=== PATIENT | female | born 1995 ===

== ENCOUNTER 2017-06-21 20:40 | Inpatient (IN) | payer MEDICAID ==
[2017-06-21 22:54] VITALS: BMI 28.6
[2017-06-21] MEDS ORDERED: DiphenhydrAMINE 50 mg/ml Inj IM PRN (22:54)
[2017-06-21] MEDS ORDERED: Magnesium Hydroxide Susp 30 ml UD PO PRN (22:54)
[2017-06-21] MEDS ORDERED: Alum-Mag Hydrox-Simethicone Susp (30 mL) PO PRN (22:54)
--- NOTE | 2017-06-21 23:09 | PCM.BM ---
<JinnyPaul Patiño - Last Filed: 06/21/17 23:06> Treatment Plan Problems - Problems identified on initial assessmt hopelessness/helplessness Date Initiated: 06/21/17 Time Initiated: 23:06 Assessment reference: NA Status: Active Treatment assets and liabiliti Patient Assests: adapts well, cooperative, educated, motivated, physically healthy Patient Liabilities: financial problems, other (family conflict) - Milieu Protocol Maintain good personal hygiene: daily Remind patient to perform daily oral care , daily Assist patient to perform ADL's, every other day Encourage regular showers Maintain personal safety: every shift Educate patient to report safety concerns to staff, every shift Monitor environment for contraband/sharps Medication safety: Monitor for expected outcome, potential side effects: every shift, Assess barriers to learning: every shift, Assess readiness for medication education: every shift Family Contact Family contact: Patient agrees to contact, Other (contact gf: rajni verma: [phone]) Discharge/Continuing Care - Education Needs Education Needs: Family Medication, Family Diagnosis/Disease Process, Family Coping Skills, Family Community resources, Family Aftercare Safety Plan, Patient Medication, Patient Diagnosis/Disease Process, Patient Coping Skills, Patient Community resources, Patient Aftercare Safety Plan - Discharge Discharge Criteria: Tolerates medication w/o severe side effects, Free of Suicidal thoughts, Normal sleep pattern <Rupal Carbajal - Last Filed: 06/23/17 16:06> Treatment assets and liabiliti Patient Assests: adapts well, cooperative, educated, insightful, motivated, self -reliant, ADL independent, physically healthy, good support system, negotiates basic needs Patient Liabilities: financial problems, poor support system (social supports are limited to fiance), other Family Contact Family involvement: Family/SO is involved Family contact: Patient agrees to contact Family contact name: Rajnidomenic woods) ([phone]) Family contacted how many times per week?: 1 Family contact comment: Patients renea has been contacted and provided with education regarding nature of tx provided on 3NP and benefits of compliance with aftercare. Patients renea expressed understanding and denied having concerns regarding patients anticipated discharge/return home. - Outside Agency Agency 1 Care involvment: Other Agency contact name: [facility] Agency contact number: [phone] - Goals for Treatment Patient goals for treatment: Patient to be encouraged to attend groups to identify contributing factors leading to overdose leading to admission and for development of coping skills and improvement in insight. Psychoeducation provided regarding benefits of compliance with aftercare to reduce risk of future hospitalizations and ensure safety in the community. Patient reports overdose leading to admission as impulsive and expressed remorse. Patient expressed being motivated for outpatient therapy. Discharge/Continuing Care - Education Needs Education Needs: Family Medication, Family Diagnosis/Disease Process, Family Coping Skills, Family Community resources, Family Aftercare Safety Plan, Patient Medication, Patient Diagnosis/Disease Process, Patient Coping Skills, Patient Community resources, Patient Aftercare Safety Plan - Discharge Discharge Criteria: Tolerates medication w/o severe side effects, Free of Suicidal thoughts, Normal sleep pattern <Rodolfo Garcia - Last Filed: 06/24/17 10:30>
[2017-06-22 08:43] LABS: T4 9.48 ug/dl (5.5-11.0)
[2017-06-22 08:56] LABS: T3 1.18 nmol/L (1.49-2.60)
--- NOTE | 2017-06-22 13:55 | CP.PCM.CON ---
History of Present Illness - History of Present Illness History of Present Illness: Reason for Consult: per hospital protocol CC: suicide attempt HPI 21 year old female no past medical history admitted after suicide attempt. Patient states she attempted suicide and 2 minutes later she drove herself to the emergency room. She has no other complaints at this time. HD stable. ROS: per HPI, 12 systems reviewed and negative PMD: DR. MALIHA RENEE PMH: denies PSH: denies FH: denies SH: denies ETOH, IVDU. TOBACCO, 2 CIGARETTES DAILY, TRYING TO QUIT Meds: as below Allergies: NKDA Vitals: reviewed and currently stable Exam: GEN: WDWN, alert, cooperative HEENT: NCAT, PERRL, EOMI NECK: supple, no JVD, no lymphadenopathy CARDIAC: +S1S2 RRR LUNG: CTAB No WRR ABD: SOFT NT ND BSX4 NO MASSES NO HSM EXT: +pedal pulses, equal strength NEURO: AAOx3 SKIN warm, dry PSYCH normal mood, normal affect Labs: Laboratory Results - last 72 hr 06/22/17 06/22/17 07:30 07:30 Hemoglobin A1c 5.3 Triglycerides 120 Cholesterol 161 LDL Cholesterol Direct 105 HDL Cholesterol 34 Thyroxine (T4) 9.48 Total T3 1.18 L TSH 3rd Generation 1.79 Assessment and Plan: 21 year old female no past medical history admitted after suicide attempt. Patient states she attempted suicide and 2 minutes later she drove herself to the emergency room. She has no other complaints at this time. HD stable. Depression/Suicide Attempt - management per psychiatry Past Patient History - CARDIAC Hx Cardiac Disorders: No - PULMONARY Hx Respiratory Disorders: Yes Hx Bronchitis: Yes (hx of) - NEUROLOGICAL Hx Neurological Disorder: No - HEENT Hx HEENT Problems: Yes (wears glasses) - RENAL Hx Chronic Kidney Disease: No - ENDOCRINE/METABOLIC Hx Endocrine Disorders: No - HEMATOLOGICAL/ONCOLOGICAL Hx Blood Disorders: No - INTEGUMENTARY Hx Dermatological Problems: No - MUSCULOSKELETAL/RHEUMATOLOGICAL Hx Musculoskeletal Disorders: No - GASTROINTESTINAL Hx Gastrointestinal Disorders: No - GENITOURINARY/GYNECOLOGICAL Hx Genitourinary Disorders: Yes Other/Comment: irregular period, last menses ended at end of April 2017 - PSYCHIATRIC Hx Depression: Yes Hx Substance Use: No - SURGICAL HISTORY Hx Surgeries: No - ANESTHESIA Hx Anesthesia: No Meds Allergies/Adverse Reactions: Allergies Allergy/AdvReac Type Severity Reaction Status Date / Time No Known Allergies Allergy Verified 06/21/17 22:52 - Medications Medications: Current Medications Acetaminophen (Tylenol 325mg Tab) 650 mg PO Q4 PRN PRN Reason: T>101.0;headache;Pain 1-7 Al Hydrox/Mg Hydrox/Simethicone (Maalox Plus 30 Ml) 30 ml PO Q4 PRN PRN Reason: Dyspepsia Diphenhydramine HCl (Benadryl) 50 mg IM Q6 PRN PRN Reason: Extrapyramidal S/S Unable PO Diphenhydramine HCl (Benadryl) 50 mg PO Q6 PRN PRN Reason: Extrapyramidal Symptoms Diphenhydramine HCl (Benadryl) 50 mg PO HS PRN PRN Reason: Sleep Haloperidol (Haldol) 5 mg PO Q4 PRN PRN Reason: Agitation Haloperidol Lactate (Haldol) 5 mg IM Q4 PRN PRN Reason: Agitation, Unable to Take PO Lorazepam (Ativan) 2 mg IM Q4 PRN PRN Reason: Anxiety/Agitation,Unable PO Lorazepam (Ativan) 2 mg PO Q4 PRN PRN Reason: Anxiety/Agitation Magnesium Hydroxide (Milk Of Magnesia) 30 ml PO HS PRN PRN Reason: Constipation Results - Vital Signs Recent Vital Signs: Last Vital Signs Temp 97.5 F L 06/22/17 09:00 Pulse 63 06/22/17 09:00 Resp 18 06/22/17 09:00 BP 121/70 06/22/17 09:00 Pulse Ox - Labs Labs: Laboratory Results - last 24 hr 06/22/17 06/22/17 07:30 07:30 Hemoglobin A1c 5.3 Triglycerides 120 Cholesterol 161 LDL Cholesterol Direct 105 HDL Cholesterol 34 Thyroxine (T4) 9.48 Total T3 1.18 L TSH 3rd Generation 1.79
--- NOTE | 2017-06-22 15:48 | PCM.PSYCH ---
Initial Psychiatric Evaluation - Initial Psychiatric Evaluation Type of Admission: Voluntary Legal Status: Capacity Chief Complaint (in patient's own words): i am here to cooperate Patient's Reaction to Hospitalization: cooperative History of Present Illness and Precipitating Events: 21 yo female who lives with her jason and is employed. pt has history of receiving therapy as a child after the of her grandmother who raised her. pt was transferred from [facility] after an overdose of naproxen / tylenol that require hospitalization on a medical floor. she states she made the overdose impulsively in the context of feeling financial stress- had to borrow money from her jason's family and having to give her whole paycheck to her preeti mother. pt denies any symptoms of depression or kofi- no change in sleep/appetite/energy/focus or concentration. no manic symptoms. pt has started working and not having problems at work. no psychosis. no substance use. pt regrets the overdose and sought help immediately and is allowing contact with her fiance. pt is from [place] and moved to the area recently. was bullied in school for being a lesbian as pt was "out" since she was 8 years old. she received therapy for a year as a child Current Medications: Active Medications Generic Name Dose Route Start Last Admin Trade Name Freq PRN Reason Stop Dose Admin Acetaminophen 650 mg 06/21/17 22:54 Tylenol 325mg Tab PO Q4 PRN T>101.0;headache;Pain 1-7 Al Hydrox/Mg Hydrox/Simethicone 30 ml 06/21/17 22:54 Maalox Plus 30 Ml PO Q4 PRN Dyspepsia Diphenhydramine HCl 50 mg 06/21/17 22:54 Benadryl IM Q6 PRN Extrapyramidal S/S Unable PO Diphenhydramine HCl 50 mg 06/21/17 22:54 Benadryl PO Q6 PRN Extrapyramidal Symptoms Diphenhydramine HCl 50 mg 06/21/17 22:59 Benadryl PO HS PRN Sleep Haloperidol 5 mg 06/21/17 22:54 Haldol PO Q4 PRN Agitation Haloperidol Lactate 5 mg 06/21/17 22:54 Haldol IM Q4 PRN Agitation, Unable to Take PO Lorazepam 2 mg 06/21/17 22:54 Ativan IM Q4 PRN Anxiety/Agitation,Unable PO Lorazepam 2 mg 06/21/17 22:54 Ativan PO Q4 PRN Anxiety/Agitation Magnesium Hydroxide 30 ml 06/21/17 22:54 Milk Of Magnesia PO HS PRN Constipation Past Psychiatric History - Past Psychiatric History Previous Treatment History: None Prior Professional Help: therapy after the of her grandmother History of Abuse: bullied as a child at school. History of ETOH/Drug Use: drinks socially, smokes cigarettes occasionally. denies other substance use History of Family Illness: pt denies any family history of mental illness Pertinent Medical Hx (Current Medical&Sleep Prob, Allergies): Allergies Allergy/AdvReac Type Severity Reaction Status Date / Time No Known Allergies Allergy Verified 06/21/17 22:52 Review of Systems - Psychiatric Psychiatric: As Per [facility] Mental Status Examination - Personal Presentation Personal Presentation: Looks stated age - Affect Affect: Broad - Motor Activity Motor Activity: Calm - Reliability in Providing Information Reliability in Providing Information: Good - Speech Speech: Organized - Mood Mood: Neutral - Formal Thought Process Formal Thought Process: No Impairment - Obsessions/Compulsions Obsessions: No Compulsions: No - Cognitive Functions Orientation: Person, Place, Situation, Time Sensorium: Alert Attention/Concentration: Attentive Abstract Thinking: [place] Estimate of Intelligence: Average Judgement: Intact, as evidence by: Insight regarding need for hospitalization Memory: Recent intact, as evidence by: Ability to recall events of the day, Remote intact, as evidenced by: Abilit to recall sig. life events - Risk Risk: Suicidal (recent attempt. denies prior attempts. ) - Strength & Assets Inventory Strength & Assets Inventory: Intelligence, Employment status - Limitations Limitations: Other (impulsive) DSM 5 DX - DSM 5 DSM 5 Diagnosis: adjustment disorder with depression/anxiety impulse control disorder unspecified - Recommended/Plan of Treatment Treatment Recommendations and Plan of Treatment: admit to 3np for safety and observation gather collateral information provide supportive therapy adjust meds- will observe and treat if medications indicated hospitalist consult disposition planning Projected ELOS: 3 days Prognosis: fair - Smoking Cessation Smoking Cessation Initiated: No Reason for not providing: declines
--- NOTE | 2017-06-23 10:51 | PCM.PYCHPN ---
Psychiatric Progress Note - Psychiatric Progress Note Patient seen today, length of contact: discussed with team Patient Chief Complaint: when can i leave Problems Identified/Issues Discussed: pt participating in groups. socializing with peers. no aggression or agitation while on the unit. Medication Change: No Medical Record Reviewed: Yes Mental Status Examination - Cognitive Function Orientation: Person, Place, Situation, Time Memory: Intact Attention: WNL Concentration: WNL Association: WNL Fund of Knowledge: WN Decription of patient's judgement and insights: fair - Mood Mood: Neutral - Affect Affect: Broad - Speech Speech: Appropriate - Formal Thought Process Formal Thought Process: No Impairment - Suicidal Ideation Suicidal Ideation: No - Homicidal Ideation Homicidal Ideation: No Goal/Treatment Plan - Goal/Treatment Plan Need for Continued Stay: Remain at risks for inpatient hospitalization, Severe functional impairment Progress Toward Problem(s) and Goals/Treatment Plan: impulse control disorder adjustment disorder will continue current treatment and observation discharge tomorrow after gathering collateral information Estimated Date of D/C: 06/24/17
[2017-06-24 09:17] VITALS: BP 122/60; PULSE 69; RESP 16; TEMP 96.6
--- NOTE | 2017-06-24 09:54 | PCM.PYCHDC ---
Mental Status Examination - Mental Status Examination Orientation: Person, Place, Situation, Time Memory: Intact Mood: Neutral Affect: Broad Speech: Appropriate Attention: WNL Concentration: WNL Association: WNL Fund of Knowledge: WNL Formal Thought Process: No Impairment Description of patient's judgement and insight: fair Psychotic Thoughts and Behaviors: denies a/v hallucinations Suicidal Ideation: No Current Homicidal Ideation?: No Discharge Summary - Discharge Note Reason for Hospitalization: pt made a suicide attempt by overdose Psychiatric History (includes Medical, Family, Personal Hx): no previous psychiatric history or medication/inpt treatment Consultations:: List each consultation separately and include: 1. Reason for request. 2. Findings. 3. Follow-up Consultations: seen by the hospitalist Summary of Hospital Course include:: 1. Description of specific treatment plan utilized for patients during their course of treatmen. 2. Summarize the time- course for resolution of acute symptoms and/or regressed behaviors. 3. Describe issues identified and worked on during hospitalization. 4. Describe medication utilized. 5. Describe medical problems identified and treated. 6. Reassessment of suicide risk Summary of Hospital Course: 21 yo female who lives with her jsaon and is employed. pt has history of receiving therapy as a child after the of her grandmother who raised her. pt was transferred from [facility] after an overdose of naproxen / tylenol that require hospitalization on a medical floor. she states she made the overdose impulsively in the context of feeling financial stress- had to borrow money from her jason's family and having to give her whole paycheck to her preeti mother. pt denies any symptoms of depression or kofi- no change in sleep/appetite/energy/focus or concentration. no manic symptoms. pt has started working and not having problems at work. no psychosis. no substance use. pt regrets the overdose and sought help immediately and is allowing contact with her fiance. pt is from [place] and moved to the area recently. was bullied in school for being a lesbian as pt was "out" since she was 8 years old. she received therapy for a year as a child hospital course: admitted to 3pn and oriented to the unit. placed on routine safety protocols. attended groups. denied any symptoms of depression. collateral supports were supportive of discharged. pt was denying any suicidal or homicidal thoughts at the time of discharge. she was agreeable to follow up with outpatient treatment. - Final Diagnosis (DSM 5) Condition upon Discharge: GOOD DSM 5: impulse control disorder unspecified Disposition: HOME/ ROUTINE Follow-up Treatment Plan: follow up with aftercare as directed do not use alcohol, tobacco or other illicit substances call 911 if any suicidal or homicidal thoughts - Smoking Cessation Smoking Cessation Medication prescribed: No - Antipsychotic Medications Pt discharged on 2 or more routine antipsychotic medications: No
== END 2017-06-24 11:49 | disposition home or self-care (01) | DRG 431 ==
LOC: H.EDERROR 20:40 → H.ER 20:40 → H.PSYCH 20:57
PROVIDERS: ADMIT Psychiatry & Neurology Psychiatry; ATTEND Psychiatry & Neurology Psychiatry
PROC: GZHZZZZ Group Psychotherapy (ICD-10-PCS; principal; 2017-06-21)
DX: F63.9 Impulse disorder, unspecified (principal); F17.210 Nicotine dependence, cigarettes, uncomplicated